=== PATIENT | male | born 1965 | race American Indian/Alaskan Native ===

== ENCOUNTER 2018-08-07 06:37 | Day surgery (SDC) | payer OTHER ==
[2018-08-07] MEDS ORDERED: NACL 0.9% 1000 ML 1,000 ML IV SCH (07:00)
--- NOTE | 2018-08-07 08:16 | Anesthesia Day of Surgery ---
Anesthesia Day of Surgery - Day of Surgery Patient Examined: Yes Patient H&P Reviewed: Yes Patient is NPO: Yes
--- NOTE | 2018-08-07 08:17 | Anesthesia Consultation ---
Anesthesia Consult and Med Hx Date of service: 08/07/18 - Airway Anesthetic Teeth Evaluation: Good ROM Head & Neck: Adequate Mental/Hyoid Distance: Adequate Mallampati Class: Class III Intubation Access Assessment: Good - Pulmonary Exam CTA: Yes - Cardiac Exam Cardiac Exam: No Murmur - Pre-Operative Health Status ASA Pre-Surgery Classification: ASA3 Proposed Anesthetic Plan: MAC - Pulmonary Hx Smoking: Yes - Cardiovascular System Hx Hypertension: Yes
--- NOTE | 2018-08-07 08:54 | Operative Report ---
Operative Report Operative Report: DATE OF SERVICE: 08/07/18 SURGEON: Ezio Carlos MD COLONOSCOPY with snare polypectomy and cold forceps biopsy polypectomy REPORT PREOPERATIVE AND POSTOPERATIVE DIAGNOSIS: screening colonoscopy DESCRIPTION OF PROCEDURE: The colonoscope was passed to the terminal ileum as identified by the ileal tissue. Scope was carefully withdrawn. Retroflexion was performed in the rectum. At the end of procedure, the scope was cleaned using normal technique. Vital signs monitored continuously throughout. SEDATION: Provided by [facility]. Quality of the prep was adequate. COMPLICATIONS: None. ESTIMATED BLOOD LOSS: minimal FINDINGS: * Normal terminal ileum * 1mm semi-sessile polyp in the ascending colon removed with cold biopsy forceps * 5mm semi-sessile polyp in the rectum removed with cold snare * 4 small sessile polyps in the rectum, hyperplastic appearing, removed with cold biopsy forceps * Remainder of the exam was normal RECOMMENDATIONS: * Repeat colonoscopy based upon pathology results, with timing of 3, 5, or 10 years based upon the pathology from the polyps
[2018-08-07 09:21] VITALS: BP 152/107
[2018-08-07] MEDS ORDERED: DIPRIVAN 10 MG/ML IV ONE ×2 (10:23)
--- NOTE | 2018-09-06 08:09 | History and Physical Report ---
History of Present Illness Date of examination: 08/07/18 History of present illness: History Of Present Illness * The patient is a 53 year old /Black male, who presents on referral from Mariana Magaña MD, for a colonoscopy. A copy of this document will be sent to the referring provider. The patient has never had a colonoscopy before. The patient does not have any risk factors for colon cancer, but is over the recommended age for screening. There is no recent history of rectal bleeding. The patient has no pertinent additional complaints of abdominal pain, constipation, diarrhea, and weight loss. Past Medical History HTN (hypertension); Screening colonoscopy Past Surgical History Cosmetic Surgery Medication List amlodipine 10 mg oral tablet Allergy List NO KNOWN DRUG ALLERGIES; No Known Environmental Allergies; No Known Food Allergies Family Medical History *No Stated Family Medical History Social History Alcohol (Current some day); Tobacco (Current some day) Physical Examination Gen - NAD CV RRR Abd Soft Medications and Allergies Allergies Allergy/AdvReac Type Severity Reaction Status Date / Time No Known Allergies Allergy Verified 08/06/18 10:52 Home Medications Medication Instructions Recorded Confirmed Last Taken Type amLODIPine 5 mg PO DAILY 08/06/18 08/07/18 08/06/18 History Vitamin D (Nf) 50,000 units PO [facility] 08/07/18 08/07/18 08/06/18 History Exam - Constitutional Vitals: Temp Pulse Resp BP Pulse Ox 98.2 F 59 L 17 152/107 98 08/07/18 08:43 08/07/18 09:15 08/07/18 09:15 08/07/18 09:15 08/07/18 09:15 Assessment and Plan proceed with colonoscopy for CRC screening
== END 2018-08-07 09:35 | disposition home or self-care (01) ==
LOC: GIO 06:37
PROVIDERS: ATTEND Student in an Organized Health Care Education/Training Program
DX: Z12.11 Encounter for screening for malignant neoplasm of colon (principal); D12.2 Benign neoplasm of ascending colon; K62.1 Rectal polyp; F17.210 Nicotine dependence, cigarettes, uncomplicated; I10 Essential (primary) hypertension; Z98.890 Other specified postprocedural states; Z79.899 Other long term (current) drug therapy
CPT/HCPCS: 45380; 45385; 88305; J2704; J7030